=== PATIENT | female | born 1965 | race Caucasian/White ===

== ENCOUNTER 2017-03-13 03:40 | Inpatient (IN) | payer OTHER ==
[~2017-03-13] VITALS: Ht 165.1 cm; Wt 69.8 kg
--- NOTE | 2017-03-13 04:54 | RADRPT ---
PROCEDURE: Chest. CLINICAL INDICATION: Chest pain. TECHNIQUE: Single frontal view of the chest was obtained. COMPARISON: None. FINDINGS: There is a left-sided pacemaker. The cardiac silhouette is enlarged. The aortic arch is unremarkab le. There are increased interstitial markings bilaterally. There is no focal consolidation or pleu ral effusion. There is no pneumothorax. IMPRESSION: Bilateral increased interstitial markings could represent pulmonary venous congestion or chronic jeanna g changes. Cardiomegaly. .Jackson Davis MD, Date Time Electronically viewed and signed by .Jackson Davis MD, on 03/13/2017 04:54 .T/
--- NOTE | 2017-03-13 05:01 | ERA ---
ER Documentation Chief Complaint Date/Time DATE: 03/13/17 TIME: 05:00 Chief Complaint tia / chf HPI 51-year-old female comes on transfer from [facility] for CHF versus TIA. She had full workup there and showed a BNP of 60,000. Patient admits to using meth. Nonfocal neurologically. No other current complaints. ROS All systems reviewed and are negative except as per history of present illness. Allergies Allergies: Coded Allergies: doxycycline (Unverified Allergy, Unknown, 03/13/17) tetracycline (Unverified Allergy, Unknown, 03/13/17) PMhx/Soc History of Surgery: Yes (pacemaker) Anesthesia Reaction: No Hx Neurological Disorder: No Hx Respiratory Disorders: No Hx Cardiac Disorders: Yes (chf) Hx Psychiatric Problems: No Hx Miscellaneous Medical Probl: Yes (fibromyalgia, arthritis) Hx Alcohol Use: Yes Hx Substance Use: Yes (meth) Hx Tobacco Use: Yes Smoking Status: Current every day smoker Physical Exam Vitals Vital Signs Date Time Temp Pulse Resp B/P Pulse Ox O2 Delivery O2 Flow Rate FiO2 03/13/17 04:05 98.5 81 16 142/75 98 Physical Exam Const: [] Head: Atraumatic Eyes: Normal Conjunctiva ENT: Normal External Ears, Nose and Mouth. Neck: Full range of motion..~ No meningismus. Resp: Clear to auscultation bilaterally Cardio: Regular rate and rhythm, no murmurs Abd: Soft, non tender, non distended. Normal bowel sounds Skin: No petechiae or rashes Back: No midline or flank tenderness Ext: No cyanosis, or edema Neur: Awake and alert Psych: Normal Mood and Affect Procedures/MDM EKG: Rate/Rhythm: Normal Sinus Rhythm QRS, ST, T-waves: No changes consistent w/ acute ischemia Impression: No evidence of ischemia or arrhythmia Chest X-ray 1V Interpreted by me: Soft Tissue: No acute abnormalities Bones: No acute abnormalities Mediastinum/Cardiac Silhouette/Lungs: No acute abnormalities Patient's heart failure symptoms is concerning for acute decompensation and will require inpatient workup and monitoring. Further w/u for ischemia, arrhythmia, PE or dissection will be deferred to the inpatient team. Accepting Care Team: Current data and ongoing care discussed. Time: 5 AM Primary Provider: Hospitalist Consulting: [JerOXOXO] Outstanding Data: none Departure Diagnosis: Primary Impression: Congestive heart failure Qualified Code: I50.9 - Congestive heart failure, unspecified congestive heart failure chronicity, unspecified congestive heart failure type Additional Impression: TIA (transient ischemic attack) Qualified Code: G45.9 - Transient cerebral ischemia, unspecified type Condition: Serious LUCIANO HILARIO Mar 13, 2017 05:01
[2017-03-13 05:38] LABS: HEMATOCRIT 39.5 % (37.0-47.0); HEMOGLOBIN 13.2 g/dl (12.0-16.0); LYMPHOCYTES # 1.3 10^3/ul (0.8-2.9); LYMPHOCYTES % 24.2 % (15.0-51.0); MEAN CORPUSCULAR HEMOGLOBIN 28.4 pg (29.0-33.0); MEAN CORPUSCULAR HGB CONC 33.4 g/dl (32.0-37.0); MEAN CORPUSCULAR VOLUME 84.9 fl (82.0-101.0); MEAN PLATELET VOLUME 11.3 fl (7.4-10.4); MONOCYTE # 0.5 10^3/ul (0.3-0.9); MONOCYTES % 9.6 % (0.0-11.0); PLATELET COUNT 195 10^3/UL (140-415); RED BLOOD COUNT 4.65 10^6/ul (4.20-5.40); RED CELL DISTRIBUTION WIDTH 14.9 % (11.5-14.5); WHITE BLOOD COUNT 5.4 10^3/ul (4.8-10.8)
[2017-03-13 05:43] LABS: ADD UMIC NO; UR ASCORBIC ACID NEGATIVE (NEGATIVE); UR BILIRUBIN (Dip) NEGATIVE (NEGATIVE); UR BLOOD (Dip) NEGATIVE (NEGATIVE); UR CLARITY CLEAR (CLEAR); UR COLOR STRAW (YELLOW); UR GLUCOSE (Dip) NEGATIVE (NEGATIVE); UR KETONES (Dip) NEGATIVE (NEGATIVE); UR LEUKOCYTE ESTERASE (Dip) NEGATIVE Leu/ul (NEGATIVE); UR NITRITE (Dip) NEGATIVE (NEGATIVE); UR SPECIFIC GRAVITY (Dip) 1.015 (1.003-1.030); UR TOTAL PROTEIN (Dip) NEGATIVE (NEGATIVE); UR UROBILINOGEN (Dip) NEGATIVE (NEGATIVE)
[2017-03-13 06:01] LABS: CALCIUM 9.2 mg/dl (8.4-10.2); CREATININE 0.9 mg/dl (0.44-1.00); POTASSIUM 3.6 mmol/L (3.5-5.1)
[2017-03-13] MEDS ORDERED: SPIR25TA PO (06:08)
[2017-03-13] MEDS ORDERED: VALS80TA2 PO (06:08)
[2017-03-13] MEDS ORDERED: WARF5TAB72 PO (06:08)
[2017-03-13] MEDS ORDERED: ACET325T45 PO (06:10)
[2017-03-13 06:13] LABS: TROPONIN-I 0.075 ng/ml (0.00-0.12)
[2017-03-13 06:23] LABS: INR 1.08; PT RATIO 1.1
[2017-03-13 06:24] LABS: PARTIAL THROMBOPLASTIN TIME 28.7 Sec (25.0-35.0)
[2017-03-13] MEDS ORDERED: ACETAMINOPHEN 325 MG TAB PO PRN (08:30)
[2017-03-13] MEDS ORDERED: morphine 2 MG INJ IV PRN (08:30)
[2017-03-13] MEDS ORDERED: ONDANSETRON 4 MG INJ IV PRN (08:30)
--- NOTE | 2017-03-13 08:54 | RADRPT ---
PROCEDURE: US Carotids. CLINICAL INDICATION: bruit , L sided weakness TECHNIQUE: Multiple sonographic of the carotid bifurcation region and vertebral arteries were obta ined utilizing esquivel scale, duplex and color-flow imaging. The images were reviewed on a PACS worksta tion. COMPARISON: No prior studies are available for comparison. FINDINGS: Evaluation of the right carotid bifurcation region reveals no significant calcific atherosclerotic d isease. Evaluation of the left carotid bifurcation region reveals mild calcific atherosclerotic disease. There is antegrade flow within the vertebral arteries bilaterally. RIGHT CAROTID MEASUREMENTS: Common Carotid Xgmlpg57.9 (cm/sec) Internal Carotid Artery - mziebmme65.2 (cm/sec) Internal Carotid Artery - mid51 (cm/sec) Internal Carotid Artery - .9 (cm/sec) Internal Carotid/Common Carotid0.84 LEFT CAROTID MEASUREMENTS: Common Carotid Qgagdh42.1 (cm/sec) Internal Carotid Artery - qbiqtgdf58.5 (cm/sec) Internal Carotid Artery - mid52.6 (cm/sec) Internal Carotid Artery - ymgouv40.7 (cm/sec) Internal Carotid/Common Carotid1.19 RPTAT: AA IMPRESSION: No evidence for hemodynamically significant stenosis in the bilateral internal carotid arteries - va lidated velocity measurements with angiographic measurements, velocity criteria are extrapolated fro m diameter data as defined by the Society of Radiologists in Ultrasound Consensus Conference Radiolo gy 2003; 229;340-346. This study does indirectly reference the measurement of the distal ICA diamet er as the denominator for stenosis measurement. Normal antegrade flow in the vertebral arteries bilaterally. .Andrew Meek MD, Date Time Electronically viewed and signed by .Andrew Meek MD, MD on 03/13/2017 08:53 .S/
[2017-03-13] MEDS ORDERED: FUROSEMIDE 40 MG INJ IV SCH (09:00)
[2017-03-13] MEDS: FAMOTIDINE 20 MG TAB PO SCH ×2 (09:29→20:11)
[2017-03-13] MEDS: SPIRONOLACTONE 25 MG TAB PO SCH (09:30)
[2017-03-13] MEDS: DOCUSATE SODIUM 100 MG CAP PO SCH ×2 (09:30→20:11)
[2017-03-13] MEDS: VALSARTAN 80 MG TAB PO SCH (09:30)
--- NOTE | 2017-03-13 10:12 | CONS ---
Date/Time of Note Date/Time of Note DATE: 03/13/17 TIME: 10:08 Assessment/Plan Assessment/Plan Chief Complaint/Hosp Course 51 yo female with history of CHF, methamphetamine use, active smoker, prior alcohol abuse admitted with TIA symptoms resolved yesterday unclear duration. Recommend CVA work up: MRI Brain w/o contrast MRA Head (Duplex negative for stenosis) ECHO w bubble study maintain SBP <140/90 check FLP, HBA1C asprin 81 mg EC daily optimization of CHF medications drug abuse counseling smoking cessation lifestyle modification DVT ppx tele monitoring will follow Problems: Consultation Date/Type/Reason Admit Date/Time 03/12/17 Date of Consultation: Mar 12, 2017 Type of Consultation: Neurology Reason for Consultation CVA eval Referring Provider: ERIKA GARCES Hx of Present Illness 51 year old female with history of smoking, CHF non-compliant with medications , methamphetamine abuse, prior ETOH abuse admitted after episode of left sided weakness yesterday and AMS. Patient was at the [place] went back to her car and friends noticed her face was drooping on the left and she was acting strange, unclear how long episode lasted patient unable to provide further information. She is now back to baseline, denies NICOLE denies dysarthria or dysphagia, no focal weakness, she has no hx of prior CVA. Social History Smoking Status: Current every day smoker Exam/Review of Systems Vital Signs Vitals Vital Signs Date Time Temp Pulse Resp B/P Pulse Ox O2 Delivery O2 Flow Rate FiO2 03/13/17 05:18 98.5 85 16 156/102 98 Nasal Cannula 03/13/17 05:17 2 Exam Constitutional: alert, oriented Psych: no complaints Neurological: STAFF RADIATION THERAPIST II-XII intact, DTR's symmetric, nl mental status, nl speech, nl strength Results Result Diagram: 03/13/17 0450 03/13/17 0450 Results 24 hrs Laboratory Tests Test 03/13/17 04:45 03/13/17 04:50 03/13/17 05:10 03/13/17 05:55 Urine Color STRAW Urine Clarity CLEAR Urine pH 6.0 Urine Specific [place] 1.015 Urine Ketones NEGATIVE Urine Nitrite NEGATIVE Urine Bilirubin NEGATIVE Urine Urobilinogen NEGATIVE Urine Leukocyte Esterase NEGATIVE Urine Hemoglobin NEGATIVE Urine Glucose NEGATIVE Urine Total Protein NEGATIVE White Blood Count 5.4 Red Blood Count 4.65 Hemoglobin 13.2 Hematocrit 39.5 Mean Corpuscular Volume 84.9 Mean Corpuscular Hemoglobin 28.4 L Mean Corpuscular Hemoglobin Concent 33.4 Red Cell Distribution Width 14.9 H Platelet Count 195 Mean Platelet Volume 11.3 H Neutrophils % 66.0 Lymphocytes % 24.2 Monocytes % 9.6 Eosinophils % 0.0 Basophils % 0.0 Nucleated Red Blood Cells % 0.0 Neutrophils # (Manual) 4 Lymphocytes # 1.3 Monocytes # 0.5 Eosinophils # 0.0 Basophils # 0.0 Nucleated Red Blood Cells # 0.0 Sodium Level 140 Potassium Level 3.6 Chloride Level 102 Carbon Dioxide Level 24 Anion Gap 18 H Blood Urea Nitrogen 14 Creatinine 0.90 Glucose Level 89 Calcium Level 9.2 Troponin I 0.075 B-Type Natriuretic Peptide 88970 H Bedside Glucose 87 Prothrombin Time 14.0 Prothrombin Time Ratio 1.1 INR International Normalized Ratio 1.08 Activated Partial Thromboplast Time 28.7 Medications Medications Current Medications Acetaminophen (Tylenol Tab) 650 mg Q6H PRN PO PAIN AND OR ELEVATED TEMP; Start 03/13/17 at 08:30 Spironolactone (Aldactone) 25 mg DAILY PO Last administered on 03/13/17 09:30 ; Admin Dose 25 MG; Start 03/13/17 at 09:00 Valsartan (Diovan) 80 mg DAILY PO Last administered on 03/13/17 09:30; Admin Dose 80 MG; Start 03/13/17 at 09:00 Warfarin Sodium (Coumadin) 5 mg DAILY@17 PO ; Start 03/13/17 at 17:00 Furosemide (Lasix) 40 mg DAILY IV Last administered on 03/13/17 09:29; Admin Dose 40 MG; Start 03/13/17 at 09:00 Docusate Sodium (Colace) 100 mg BID PO Last administered on 03/13/17 09:30; Admin Dose 100 MG; Start 03/13/17 at 09:00 Famotidine (Pepcid) 20 mg BID PO Last administered on 03/13/17 09:29; Admin Dose 20 MG; Start 03/13/17 at 09:00 Ondansetron HCl (Zofran Inj) 4 mg Q6H PRN IV NAUSEA AND/OR VOMITING; Start at 08:30 Morphine Sulfate (morphine) 2 mg Q4H PRN IV pain; Start 03/13/17 at 08:30 IGOR THOMPSON MD Mar 13, 2017 10:12
[2017-03-13 11:47] LABS: CK-MB 1.83 ng/ml (0.0-2.4); TROPONIN-I 0.07 ng/ml (0.00-0.12)
--- NOTE | 2017-03-13 13:37 | CONS ---
Date/Time of Note Date/Time of Note DATE: 03/13/17 TIME: 13:27 Assessment/Plan Assessment/Plan Chief Complaint/Hosp Course Acute on chronic systolic heart failure: EF unknown. Decompensated by exam and symptoms. Ran out of meds 6 months ago. Social situation is not ideal. TIA: in setting of prior possible LV thrombus and not on anticoagulation, would be concerned about the same. Will check an echo h/o ICD: unknown details Cardiomyopathy: EF unknown Active meth abuse Prior alcohol abuse -hold coumadin until echo is obtained as was not taking it before anyway -no BB in setting of active meth abuse -continue valsartan, aldactone -lasix 40mg IV daily is ok as diuresing well per pt -echo Problems: Consultation Date/Type/Reason Admit Date/Time Initial Consult Date 03/12/17 Type of Consultation: Cardiology Reason for Consultation CHF Referring Provider: ERIKA GARCES 24 HR Interval Summary Free Text/Dictation 51 yo F with a h/o cardiomyopathy (presumably nonischemic, unknown EF), ?LV thrombus (was apparently on coumadin at some point), ICD (?primary vs secondary prevention, pt unaware), active meth abuse, prior alcohol abuse (quit 1 yr ago) , who presented initially to [facility] with left sided weakness/facial droop concerning for stroke and was transferred to [facility] for evaluation. The pt notes that her weakness was transient and that she is back at baseline. She is mostly concerned about SOB, dyspnea on exertion, orthopnea. She ran out of medications 6 months ago. She lives out of a friend's garage which she says is infested by rats. She uses meth daily, last yesterday. No chest pain. Exam/Review of Systems Vital Signs Vitals Vital Signs Date Time Temp Pulse Resp B/P Pulse Ox O2 Delivery O2 Flow Rate FiO2 03/13/17 12:29 98.2 80 18 116/90 98 Nasal Cannula 2.0 Exam Constitutional: alert, oriented Psych: No nl mood/affect Head: atraumatic, normocephalic Eyes: nl conjunctiva Neck: jvd (10cm) Respiratory: clear to auscultation, diminished breath sounds, No crackles/rales Cardiovascular: regular rate and rhythm, No edema, No systolic murmur Gastrointestinal: non-tender, soft Neurological: nl mental status, nl speech Skin: rash or lesions Results sinus, LAE, no ST changes Result Diagram: 03/13/17 0450 03/13/17 0450 Results 24 hrs Laboratory Tests Test 03/13/17 04:45 03/13/17 04:50 03/13/17 05:10 03/13/17 05:55 Urine Color STRAW Urine Clarity CLEAR Urine pH 6.0 Urine Specific [place] 1.015 Urine Ketones NEGATIVE Urine Nitrite NEGATIVE Urine Bilirubin NEGATIVE Urine Urobilinogen NEGATIVE Urine Leukocyte Esterase NEGATIVE Urine Hemoglobin NEGATIVE Urine Glucose NEGATIVE Urine Total Protein NEGATIVE White Blood Count 5.4 Red Blood Count 4.65 Hemoglobin 13.2 Hematocrit 39.5 Mean Corpuscular Volume 84.9 Mean Corpuscular Hemoglobin 28.4 L Mean Corpuscular Hemoglobin Concent 33.4 Red Cell Distribution Width 14.9 H Platelet Count 195 Mean Platelet Volume 11.3 H Neutrophils % 66.0 Lymphocytes % 24.2 Monocytes % 9.6 Eosinophils % 0.0 Basophils % 0.0 Nucleated Red Blood Cells % 0.0 Neutrophils # (Manual) 4 Lymphocytes # 1.3 Monocytes # 0.5 Eosinophils # 0.0 Basophils # 0.0 Nucleated Red Blood Cells # 0.0 Sodium Level 140 Potassium Level 3.6 Chloride Level 102 Carbon Dioxide Level 24 Anion Gap 18 H Blood Urea Nitrogen 14 Creatinine 0.90 Glucose Level 89 Calcium Level 9.2 Troponin I 0.075 B-Type Natriuretic Peptide 23650 H Bedside Glucose 87 Prothrombin Time 14.0 Prothrombin Time Ratio 1.1 INR International Normalized Ratio 1.08 Activated Partial Thromboplast Time 28.7 Test 03/13/17 10:34 Creatine Kinase 55 Creatine Kinase Index 3.3 Creatinine Kinase MB (Mass) 1.83 Troponin I 0.070 Medications Medications Current Medications Acetaminophen (Tylenol Tab) 650 mg Q6H PRN PO PAIN AND OR ELEVATED TEMP; Start 03/13/17 at 08:30 Spironolactone (Aldactone) 25 mg DAILY PO Last administered on 03/13/17 09:30 ; Admin Dose 25 MG; Start 03/13/17 at 09:00 Valsartan (Diovan) 80 mg DAILY PO Last administered on 03/13/17 09:30; Admin Dose 80 MG; Start 03/13/17 at 09:00 Warfarin Sodium (Coumadin) 5 mg DAILY@17 PO ; Start 03/13/17 at 17:00 Furosemide (Lasix) 40 mg DAILY IV Last administered on 03/13/17 09:29; Admin Dose 40 MG; Start 03/13/17 at 09:00 Docusate Sodium (Colace) 100 mg BID PO Last administered on 03/13/17 09:30; Admin Dose 100 MG; Start 03/13/17 at 09:00 Famotidine (Pepcid) 20 mg BID PO Last administered on 03/13/17 09:29; Admin Dose 20 MG; Start 03/13/17 at 09:00 Ondansetron HCl (Zofran Inj) 4 mg Q6H PRN IV NAUSEA AND/OR VOMITING; Start at 08:30 Morphine Sulfate (morphine) 2 mg Q4H PRN IV pain; Start 03/13/17 at 08:30 LUKASZ MCGILL Mar 13, 2017 13:36
[2017-03-13] MEDS ORDERED: IOHEXOL 100 ML ONE (14:18)
[2017-03-13] MEDS ORDERED: SOD CHLORIDE 0.9% 100 ML ONE (14:18)
--- NOTE | 2017-03-13 14:44 | RADRPT ---
PROCEDURE: CT Brain without contrast. CLINICAL INDICATION: Left-sided weakness. Right facial droop. TECHNIQUE: CT scan of the brain was performed on a multidetector high-resolution CT scan. Axial im aging was obtained of the brain without contrast administration. Coronal and sagittal reformatted i mages were obtained from the axial source images. Standard CT scan of the head without contrast prot ocols were performed. The total exam CTDI equals 45.01 mGy and the total exam DLP equals 720.3 mGy-cm. One or more of the following dose reduction techniques were used: - Automated exposure control. - Adjustment of the mA and/or kV according to patient size. Use of iterative reconstruction technique. COMPARISON: None. FINDINGS: There is a encephalomalacia involving the posterior right frontal lobe involves both white matter an d esquivel matter consistent with old infarct. The remainder of the esquivel-white matter junction is unrema rkable. Negative for intracranial masses or hemorrhages. The ventricular system and peripheral CSF spaces are otherwise unremarkable. There is artifact involving the posterior fossa and temporal fos sa. The bones of the calvarium are intact. The paranasal sinuses and mastoids visualized are unrem arkable. IMPRESSION: 1. 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 2. Negative for intracranial masses hemorrhages or midline shift. RPTAT:AAJJ Physician Yolanda Date Time Electronically viewed and signed by Physician Yolanda on 03/13/2017 14:44 BM/
--- NOTE | 2017-03-13 15:02 | RADRPT ---
Echocardiogram Report Patient Name: YANDY FISHMAN Gender: Female Date: 1965 Study Date: 13-Mar-2017 Cook Chef: Michelle Cook [facility] Location: [facility] [place] Ref. Physician: ERIKA GARCES Quality: Good Procedures: Transthoracic echocardiogram with complete 2D, M-Mode, and doppler examination. Indications: Congestive Heart Failure, elevated troponin. 2D/M Mode Doppler Measurement Value Normal Ranges Measurement Value Normal Ranges LVIDd 2D 6.2 3.5 - 5.6 cm AV Peak Claude 1.3 m/sec LVIDs 2D 5.6 2.1 - 4.1 cm AV Peak PG 6.3 mmHg LVPWd 2D 1.2 0.6 - 1.1 cm LVOT Peak Claude 1.1 m/sec IVSd 2D 1.2 0.6 - 1.1 cm LVOT Peak PG 5.1 mmHg AoR Diam 2D 2.5 2.0 - 3.7 cm MV E Peak Claude 1.0 m/sec LA Dimen 2D 4.6 2.3 - 4.0 cm MV A Peak Claude 0.6 m/sec MV Decel Time 146 msec MV Decel Weakley 7 Lateral E` 0.0 m/sec TR Peak Claude 3.4 m/sec TR Peak PG 47.3 mmHg RVSP 50.0 mmHg Findings Left Ventricle: Mild concentric left ventricular hypertrophy. Moderate enlargement of left ventricle cavity. Severe global left ventricular systolic dysfunction. Ejection fraction is visually estimated at 20 %. Tissue Doppler/Mitral Doppler indices are consistent with pseudonormalization with mildly elevated left atrial pressure (Stage II diastolic dysfunction). Right Ventricle: Normal right ventricular size. Normal right ventricular systolic function. Linear artifact in right ventricle suggestive of catheter, pacer lead, or ICD lead. Left Atrium: There is moderate enlargement of left atrium. Right Atrium: There is moderate enlargement of right atrium. Mitral Valve: Mitral valve leaflets appear mildly thickened. Mild mitral annular calcification. Mild to moderate mitral valve regurgitation. The regurgitation jet is eccentrically directed which may underestimate the severity of mitral regurgitation. Aortic Valve: Normal appearance of the aortic valve. No significant aortic stenosis or insufficiency. Tricuspid Valve: Normal appearance of the tricuspid valve. Estimated peak PA systolic pressure 55 mmHg. There is mild to moderate tricuspid regurgitation. Pulmonic Valve: Normal pulmonic valve appearance. There is mild pulmonic regurgitation. Pericardium: Normal pericardium with no significant pericardial effusion. Aorta: Normal aortic root. IVC: Normal size and no respiratory collapse consistent with elevated right atrial pressure. Conclusions 1.Mild concentric left ventricular hypertrophy. Moderate enlargement of left ventricle cavity. Severe global left ventricular systolic dysfunction. Ejection fraction is visually estimated at 20 %. Grade II diastolic dysfunction. 2.Mild to moderate mitral valve regurgitation. The regurgitation jet is eccentrically directed which may underestimate the severity of mitral regurgitation. 3.Biatrial enlargement. 4.Mild to moderate tricuspid reurgitation. 5.Pulmonary HTN with estimated peak PA systolic pressure 55 mmHg based on RA pressure of 8 mmHg. Electronically Signed By: Jason Valdovinos 13-Mar-2017 15:01:33 -0700 Patient Name: YANDY FISHMAN Study Date: 13-Mar-2017 [id number]
--- NOTE | 2017-03-13 15:08 | RADRPT ---
PROCEDURE: CTA Brain. CLINICAL INDICATION: Left-sided weakness. CVA workup. TECHNIQUE: The study was performed utilizing a multi-slice multidetector CT scanner. Direct spiral 0.65 mm axial sections were obtained through the intracranial vasculature with the use of 85 cc of Omnipaque 350 nonionic intravenous contrast material. Coronal and sagittal MPRs as well as maximal intensity projection reformations were obtained. 3-D MIP images were also reviewed. The images were reviewed on a PACS workstation. The CTDIvol is 66.31, and 28.38 mGy and the DLP is 568.95 mGycm. One or more of the following dose reduction techniques were used: Automated exposure control Adjustment of the mA and/or kV according to patient size. Use of iterative reconstruction technique. COMPARISON: No prior studies are available for comparison. FINDINGS: The internal carotid arteries are patent and normal in caliber. The anterior cerebral and middle cer ebral arteries are patent and normal in caliber. The vertebral arteries, basilar artery, superior c erebellar arteries, and posterior cerebral arteries are all normal in appearance. No aneurysm is id entified. No vascular malformation is seen. IMPRESSION: 1. No intracranial arterial occlusion or significant stenosis. 2. No cerebral aneurysms or vascular malformations. RPTAT: BB .Jim Blackman MD, MD Date Time Electronically viewed and signed by .Jim Blackman MD, MD on 03/13/2017 15:07 .O/
[2017-03-13 15:55] LABS: BARBITURATES Negative (NEGATIVE); BENZODIAZEPINES Negative (NEGATIVE); CANNABINOIDS Negative (NEGATIVE); COCAINE Negative (NEGATIVE); OPIATES Negative (NEGATIVE)
[2017-03-13] MEDS ORDERED: WARFARIN 5 MG TAB PO SCH (17:00)
--- NOTE | 2017-03-13 17:05 | HP ---
Date/Time of Note Date/Time of Note DATE: 03/13/17 TIME: 17:01 Assessment/Plan VTE Prophylaxis VTE Prophylaxis Intervention: other (coumadin) Lines/Catheters IV Catheter Type (from Nrs): Saline Lock Assessment/Plan Assessment/Plan 51 yo F with 1. L sided weakness, now resolved / possible TIA 2. SOB likely 2/2 Mild CHF exacerbation 3. Mild Acute on chronic CHF exacerbation 4. Mildly elevated troponins 2/2 #3 5. 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 Non compliance to therapy 7. Hx of Intraventricular clot on Coumadin 8. S/p Pacemaker PLAN: admit tele / stroke workup / neurology consult diuresis / trend trops / cardio consult Substance abuse cessation counselling / SW to provide resources Resume Coumadin and manage INR Supportive care HPI/ROS Admit Date/Time Admit Date/Time 03/13/17 Hx of Present Illness PRESENTING COMPLAINT: L sided weakness HISTORY OF PRESENTING COMPLAINT: Ms. Barfield is a 51-year-old female who was referred to us from [facility] where she had gone into be evaluated for left-sided weakness. She was worked up that as a code stroke and seen by tele-neurology who did not recommend TPA because the patient had complete resolution of her symptoms. They recommended however admission for further stroke workup. She had also complained of mild shortness of breath as well as dyspnea on exertion and she was found to have an elevated d-dimer as well as an elevated BNP. The patient does have a history of chronic cardiomyopathy likely from chronic methamphetamine use, and is being diagnosed with a mild CHF exacerbation likely systolic. She did have a mildly elevated troponin also at the referral Center, but this is also likely secondary to his CHF. A CT scan of the brain done over there did not show any acute abnormalities, she will need neurology review and further management. She denies fever, denies cough, denies abdominal pain, denies dysuria or hematuria. She has not had black stools. She was previously on Coumadin therapy because of an intraventricular clots, but she has been taking Coumadin in a while. Actually, the patient has has not taken most of her meds in a while. She will need to be set up with good outpatient follow-up and workforce consultant care. ROS 12 point review if systems was done and pertinent findings are as noted. Constitutional: fatigue Respiratory: shortness of breath Cardiovascular: lightheadedness Neurologic: other (L sided weakness and numbness) Psychological: anxiety PMH/Family/Social Past Medical History * CHF * CVA Past Surgical History * KATRIN with removal of one ovary Social History Smoking Status: Current every day smoker Drug Use: other (Meth) Exam/Review of Systems Vital Signs Vitals Vital Signs Date Time Temp Pulse Resp B/P Pulse Ox O2 Delivery O2 Flow Rate FiO2 03/13/17 15:46 98.0 87 17 122/80 99 Room Air 03/13/17 12:29 2.0 Exam Exam Constitutional: alert, oriented Head: atraumatic, normocephalic Neck: non-tender, supple Respiratory: clear to auscultation Cardiovascular: regular rate and rhythm Gastrointestinal: S/ NT / ND / +BS Extremities: mild edema Labs Result Diagram: 03/13/1744903/13/17449 Medications Medications Current Medications Acetaminophen (Tylenol Tab) 650 mg Q6H PRN PO PAIN AND OR ELEVATED TEMP; Start 03/13/17 at 08:30 Spironolactone (Aldactone) 25 mg DAILY PO Last administered on 03/13/17 09:30 ; Admin Dose 25 MG; Start 03/13/17 at 09:00 Valsartan (Diovan) 80 mg DAILY PO Last administered on 03/13/17 09:30; Admin Dose 80 MG; Start 03/13/17 at 09:00 Furosemide (Lasix) 40 mg DAILY IV Last administered on 03/13/17 09:29; Admin Dose 40 MG; Start 03/13/17 at 09:00 Docusate Sodium (Colace) 100 mg BID PO Last administered on 03/13/17 09:30; Admin Dose 100 MG; Start 03/13/17 at 09:00 Famotidine (Pepcid) 20 mg BID PO Last administered on 03/13/17 09:29; Admin Dose 20 MG; Start 03/13/17 at 09:00 Ondansetron HCl (Zofran Inj) 4 mg Q6H PRN IV NAUSEA AND/OR VOMITING; Start at 08:30 Morphine Sulfate (morphine) 2 mg Q4H PRN IV pain; Start 03/13/17 at 08:30 Procedures Procedures Laboratory Tests Test 03/13/17 04:45 03/13/17 04:50 03/13/17 05:10 03/13/17 05:55 Urine Color STRAW Urine Clarity CLEAR Urine pH 6.0 Urine Specific [place] 1.015 Urine Ketones NEGATIVEmg/dL Urine Nitrite NEGATIVEmg/dL Urine Bilirubin NEGATIVEmg/dL Urine Urobilinogen NEGATIVEmg/dL Urine Leukocyte Esterase NEGATIVELeu/ul Urine Hemoglobin NEGATIVEmg/dL Urine Glucose NEGATIVEmg/dL Urine Total Protein NEGATIVEmg/dl White Blood Count 5.410^3/ul Red Blood Count 4.6510^6/ul Hemoglobin 13.2g/dl Hematocrit 39.5% Mean Corpuscular Volume 84.9fl Mean Corpuscular Hemoglobin 28.4pg Mean Corpuscular Hemoglobin Concent 33.4g/dl Red Cell Distribution Width 14.9% Platelet Count 77072^3/UL Mean Platelet Volume 11.3fl Neutrophils % 66.0% Lymphocytes % 24.2% Monocytes % 9.6% Eosinophils % 0.0% Basophils % 0.0% Nucleated Red Blood Cells % 0.0/100WBC Neutrophils # (Manual) 410^3/ul Lymphocytes # 1.310^3/ul Monocytes # 0.510^3/ul Eosinophils # 0.010^3/ul Basophils # 0.010^3/ul Nucleated Red Blood Cells # 0.010^3/ul Sodium Level 140mmol/L Potassium Level 3.6mmol/L Chloride Level 102mmol/L Carbon Dioxide Level 24mmol/L Anion Gap 18 Blood Urea Nitrogen 14mg/dl Creatinine 0.90mg/dl Glucose Level 89mg/dl Calcium Level 9.2mg/dl Troponin I 0.075ng/ml B-Type Natriuretic Peptide 39112CX/ML Bedside Glucose 87mg/dL Prothrombin Time 14.0Sec Prothrombin Time Ratio 1.1 INR International Normalized Ratio 1.08 Activated Partial Thromboplast Time 28.7Sec Test 03/13/17 10:34 03/13/17 14:45 03/13/17 17:30 Creatine Kinase 55IU/L 62IU/L Creatine Kinase Index 3.3 2.7 Creatinine Kinase MB (Mass) 1.83ng/ml 1.67ng/ml Troponin I 0.070ng/ml 0.060ng/ml Urine Opiates Screen Negative Urine Barbiturates Negative Urine Amphetamines Screen Positive Urine Benzodiazepines Screen Negative Urine Cocaine Screen Negative Urine Cannabinoids Negative PROCEDURE: Chest. CLINICAL INDICATION: Chest pain. TECHNIQUE: Single frontal view of the chest was obtained. COMPARISON: None. FINDINGS: There is a left-sided pacemaker. The cardiac silhouette is enlarged. The aortic arch is unremarkable. There are increased interstitial markings bilaterally. There is no focal consolidation or pleural effusion. There is no pneumothorax. IMPRESSION: Bilateral increased interstitial markings could represent pulmonary venous congestion or chronic lung changes. Cardiomegaly. .Jackson Davis MD, MD Date Time Electronically viewed and signed by .Jackson Davis MD, MD on 03/13/2017 04:54 .T/ CC: LUCIANO HILARIO BOLATITO M. Mar 13, 2017 17:05
[2017-03-13 17:51] VITALS: TEMP 98.2
[2017-03-13 18:31] VITALS: Ht 165.1 cm; Wt 69.8 kg
[2017-03-13 18:32] LABS: CK-MB 1.67 ng/ml (0.0-2.4); TROPONIN-I 0.06 ng/ml (0.00-0.12)
[2017-03-13 18:35] VITALS: PULSE 87
[2017-03-13 18:45] VITALS: BP 127/80; PULSE 90; RESP 18
[2017-03-13 20:00] VITALS: BP 130/75; RESP 20
[2017-03-13 20:11] VITALS: PULSE 90
[2017-03-13] MEDS ORDERED: ALPRAZOLAM 0.25 MG TAB PO PRN (20:30)
[2017-03-14] VITALS (13 sets, daily range): BP systolic 105–139; BP diastolic 57–89; PULSE 83–90; RESP 15–20
--- NOTE | 2017-03-14 09:13 | CONS ---
Date/Time of Note Date/Time of Note DATE: 03/14/17 TIME: 09:09 Assessment/Plan Assessment/Plan Chief Complaint/Hosp Course Acute on chronic systolic heart failure: EF ~20%. Decompensated by exam and symptoms on admission, now ~euvolemic. TIA: in setting of prior possible LV thrombus and not on anticoagulation but no thrombus seen on echo this admission h/o ICD: unknown details Cardiomyopathy: EF 20%. Likely from meth abuse Active meth abuse Prior alcohol abuse -no need for anticoagulation as no obvious thrombus on echo -no BB in setting of active meth abuse -continue valsartan, aldactone -switch to lasix 40mg PO daily -ok for d/c from my perspective pending neuro eval (probably should be on ASA for her TIA) Problems: Consultation Date/Type/Reason Admit Date/Time Mar 13, 2017 at 18:33 Initial Consult Date 03/12/17 Type of Consultation: Cardiology Referring Provider: ERIKA GARCES 24 HR Interval Summary Free Text/Dictation No o/n events. Urinating frequently but no I/Os. No further orthopnea or SOB Exam/Review of Systems Vital Signs Vitals Vital Signs Date Time Temp Pulse Resp B/P Pulse Ox O2 Delivery O2 Flow Rate FiO2 03/14/17 08:59 83 03/14/17 07:35 97.8 18 139/79 98 03/13/17 18:45 Room Air 03/13/17 12:29 2.0 Intake and Output 03/13/17 03/13/17 03/14/17 15:00 23:00 07:00 Intake Total 400 ml Balance 400 ml Exam Constitutional: alert, oriented Psych: no complaints Head: atraumatic, normocephalic Neck: supple, No jvd Respiratory: clear to auscultation, No crackles/rales Cardiovascular: regular rate and rhythm, No edema Gastrointestinal: non-tender, soft Neurological: nl mental status, nl speech Results Result Diagram: 03/13/1744903/13/17449 Results 24 hrs Laboratory Tests Test 03/13/17 10:34 03/13/17 14:45 03/13/17 17:30 Creatine Kinase 55 62 Creatine Kinase Index 3.3 2.7 Creatinine Kinase MB (Mass) 1.83 1.67 Troponin I 0.070 0.060 Urine Opiates Screen Negative Urine Barbiturates Negative Urine Amphetamines Screen Positive Urine Benzodiazepines Screen Negative Urine Cocaine Screen Negative Urine Cannabinoids Negative Medications Medications Current Medications Acetaminophen (Tylenol Tab) 650 mg Q6H PRN PO PAIN AND OR ELEVATED TEMP; Start 03/13/17 at 08:30 Spironolactone (Aldactone) 25 mg DAILY PO Last administered on 03/13/17 09:30 ; Admin Dose 25 MG; Start 03/13/17 at 09:00 Valsartan (Diovan) 80 mg DAILY PO Last administered on 03/13/17 09:30; Admin Dose 80 MG; Start 03/13/17 at 09:00 Furosemide (Lasix) 40 mg DAILY IV Last administered on 03/13/17 09:29; Admin Dose 40 MG; Start 03/13/17 at 09:00 Docusate Sodium (Colace) 100 mg BID PO Last administered on 03/13/17 20:11; Admin Dose 100 MG; Start 03/13/17 at 09:00 Famotidine (Pepcid) 20 mg BID PO Last administered on 03/13/17 20:11; Admin Dose 20 MG; Start 03/13/17 at 09:00 Ondansetron HCl (Zofran Inj) 4 mg Q6H PRN IV NAUSEA AND/OR VOMITING; Start at 08:30 Morphine Sulfate (morphine) 2 mg Q4H PRN IV pain; Start 03/13/17 at 08:30 Alprazolam (Xanax) 0.25 mg Q8H PRN PO ANXIETY; Start 03/13/17 at 20:30 LUKASZ MCGILL Mar 14, 2017 09:13
[2017-03-14] MEDS: SPIRONOLACTONE 25 MG TAB PO SCH (09:24)
[2017-03-14] MEDS: FAMOTIDINE 20 MG TAB PO SCH ×2 (09:25→20:49)
[2017-03-14] MEDS: DOCUSATE SODIUM 100 MG CAP PO SCH ×2 (09:25→20:49)
[2017-03-14] MEDS: VALSARTAN 80 MG TAB PO SCH (09:25)
[2017-03-14 10:01] LABS: HEMATOCRIT 43.2 % (37.0-47.0); LYMPHOCYTES # 0.9 10^3/ul (0.8-2.9); LYMPHOCYTES % 12.8 % (15.0-51.0); MEAN CORPUSCULAR HEMOGLOBIN 27.4 pg (29.0-33.0); MEAN CORPUSCULAR HGB CONC 32.4 g/dl (32.0-37.0); MEAN CORPUSCULAR VOLUME 84.5 fl (82.0-101.0); MEAN PLATELET VOLUME 10.7 fl (7.4-10.4); MONOCYTE # 0.6 10^3/ul (0.3-0.9); MONOCYTES % 8.8 % (0.0-11.0); NEUTROPHILS % 78.1 % (39.0-77.0); PLATELET COUNT 236 10^3/UL (140-415); RED BLOOD COUNT 5.11 10^6/ul (4.20-5.40); RED CELL DISTRIBUTION WIDTH 15.2 % (11.5-14.5); WHITE BLOOD COUNT 7.3 10^3/ul (4.8-10.8)
[2017-03-14] MEDS: FUROSEMIDE 40 MG TAB PO SCH ×2 (10:10→20:48)
[2017-03-14 10:19] LABS: INR 1.05; PROTIME 13.7 Sec (12.2-14.2); PT RATIO 1.1
[2017-03-14 10:20] LABS: PARTIAL THROMBOPLASTIN TIME 26.2 Sec (25.0-35.0)
[2017-03-14 10:24] LABS: CHOL/HDL RATIO 3.9 RATIO; CREATININE 1.06 mg/dl (0.44-1.00); POTASSIUM 3.8 mmol/L (3.5-5.1)
[2017-03-14 10:40] LABS: MAGNESIUM 1.8 mg/dl (1.7-2.5); PHOSPHORUS 4.4 mg/dl (2.5-4.9)
[2017-03-14 11:36] LABS: THYROID STIMULATING HORMONE 0.288 MIU/L (0.465-4.680)
--- NOTE | 2017-03-14 14:59 | CONS ---
Date/Time of Note Date/Time of Note DATE: 03/14/17 TIME: 14:50 Consult Date/Type/Reason Admit Date/Time Mar 13, 2017 at 18:33 Initial Consult Date 03/12/17 Type of Consultation: Neurology Reason for Consultation eval for TIA Ordering Provider: ERIKA GARCES Subjective symptoms stable no further neurologic issues no further weakness or aphasia Objective Vital Signs Date Time Temp Pulse Resp B/P Pulse Ox O2 Delivery O2 Flow Rate FiO2 03/14/17 12:08 97.8 84 18 125/77 95 03/13/17 18:45 Room Air 03/13/17 12:29 2.0 Intake and Output 03/13/17 03/13/17 03/14/17 15:00 23:00 07:00 Intake Total 400 ml Balance 400 ml Exam Constitutional: alert, oriented Psych: no complaints Neurological: SPORTS DIRECTOR II-XII intact, DTR's symmetric, nl mental status, nl speech, nl strength Results/Medications Result Diagram: 03/14/17 0940 03/14/17 0940 Results 24 hrs Laboratory Tests Test 03/13/17 17:30 03/14/17 09:40 Creatine Kinase 62 Creatine Kinase Index 2.7 Creatinine Kinase MB (Mass) 1.67 Troponin I 0.060 White Blood Count 7.3 # Red Blood Count 5.11 Hemoglobin 14.0 Hematocrit 43.2 Mean Corpuscular Volume 84.5 Mean Corpuscular Hemoglobin 27.4 L Mean Corpuscular Hemoglobin Concent 32.4 Red Cell Distribution Width 15.2 H Platelet Count 236 # Mean Platelet Volume 10.7 H Neutrophils % 78.1 H Lymphocytes % 12.8 L Monocytes % 8.8 Eosinophils % 0.0 Basophils % 0.0 Nucleated Red Blood Cells % 0.0 Neutrophils # (Manual) 6 Lymphocytes # 0.9 Monocytes # 0.6 Eosinophils # 0.0 Basophils # 0.0 Nucleated Red Blood Cells # 0.0 Prothrombin Time 13.7 Prothrombin Time Ratio 1.1 INR International Normalized Ratio 1.05 Activated Partial Thromboplast Time 26.2 Sodium Level 136 Potassium Level 3.8 Chloride Level 99 Carbon Dioxide Level 23 Anion Gap 18 H Blood Urea Nitrogen 20 Creatinine 1.06 H Glucose Level 179 Hemoglobin A1c 6.8 H Calcium Level 9.0 Phosphorus Level 4.4 Magnesium Level 1.8 Triglycerides Level 136 Cholesterol Level 145 LDL Cholesterol, Calculated 81 HDL Cholesterol 37 Cholesterol/HDL Ratio 3.9 Thyroid Stimulating Hormone (TSH) 0.288 L Medications Current Medications Acetaminophen (Tylenol Tab) 650 mg Q6H PRN PO PAIN AND OR ELEVATED TEMP; Start 03/13/17 at 08:30 Spironolactone (Aldactone) 25 mg DAILY PO Last administered on 03/14/17 09:24 ; Admin Dose 25 MG; Start 03/13/17 at 09:00 Valsartan (Diovan) 80 mg DAILY PO Last administered on 03/14/17 09:25; Admin Dose 80 MG; Start 03/13/17 at 09:00 Docusate Sodium (Colace) 100 mg BID PO Last administered on 03/14/17 09:25; Admin Dose 100 MG; Start 03/13/17 at 09:00 Famotidine (Pepcid) 20 mg BID PO Last administered on 03/14/17 09:25; Admin Dose 20 MG; Start 03/13/17 at 09:00 Ondansetron HCl (Zofran Inj) 4 mg Q6H PRN IV NAUSEA AND/OR VOMITING; Start at 08:30 Morphine Sulfate (morphine) 2 mg Q4H PRN IV pain; Start 03/13/17 at 08:30 Alprazolam (Xanax) 0.25 mg Q8H PRN PO ANXIETY; Start 03/13/17 at 20:30 Furosemide (Lasix) 40 mg DAILY PO Last administered on 03/14/17 10:10; Admin Dose 40 MG; Start 03/14/17 at 09:30 Assessment/Plan Chief Complaint/Hosp Course 51 yo female with history of CHF, methamphetamine use, active smoker, prior alcohol abuse admitted with TIA symptoms resolved yesterday unclear duration. EF 20% prior CVA Right frontal region on Head CT possibly secondary to cardiomyopathy from amphetamine abuse/ previous thrombus however no active thrombus at this time. Head CT shows prior CVA no new stroke, currently asymptomatic possible TIA given brief symptoms with resolution, she should be on ASA 81 mg maintain normotension HBA1C 6.8% diabetes evaluation, start metformin if appropriate drug abuse counseling smoking cessation lifestyle modification dc planning if stable Problems: IGOR THOMPSON MD Mar 14, 2017 14:59
--- NOTE | 2017-03-14 16:54 | PN ---
Date/Time of Note Date/Time of Note DATE: 03/14/17 TIME: 16:50 Assessment/Plan VTE Prophylaxis VTE Prophylaxis Intervention: SCD's, other (ASA 325 mg po daily ) Lines/Catheters IV Catheter Type (from Nrsg): Saline Lock Assessment/Plan Assessment/Plan 1. L sided weakness, now resolved / possible TIA 2. SOB likely 2/2 Mild CHF exacerbation 3. Mild Acute on chronic CHF exacerbation 4. Mildly elevated troponins 2/2 #3 5. 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 Non compliance to therapy 7. Hx of Intraventricular clot on Coumadin 8. S/p Pacemaker PLAN: s/p cardiology consult - no need for coumadin- ASA 325 mg po daily s/p IV lasix yeserday, will start lasix 40mg po daily Valsartan and spironolactone will downgrade to med/surge floor Subjective 24 Hr Interval Summary Free Text/Dictation no chest pain, no SOB, S/p cadiology cosnult, pt ran out of all of her meds( dont know details ) Exam/Review of Systems Vital Signs Vitals Vital Signs Date Time Temp Pulse Resp B/P Pulse Ox O2 Delivery O2 Flow Rate FiO2 03/14/17 16:08 97.8 90 18 118/74 98 03/13/17 18:45 Room Air 03/13/17 12:29 2.0 Intake and Output 03/13/17 03/13/17 03/14/17 15:00 23:00 07:00 Intake Total 400 ml Balance 400 ml Exam Constitutional: alert, oriented Head: atraumatic, normocephalic Neck: non-tender, supple Respiratory: clear to auscultation Cardiovascular: regular rate and rhythm Gastrointestinal: S/ NT / ND / +BS Extremities: mild edema Results Result Diagram: 03/14/17 0940 03/14/17 0940 Results 24 hrs Laboratory Tests Test 03/13/17 17:30 03/14/17 09:40 Creatine Kinase 62 Creatine Kinase Index 2.7 Creatinine Kinase MB (Mass) 1.67 Troponin I 0.060 White Blood Count 7.3 # Red Blood Count 5.11 Hemoglobin 14.0 Hematocrit 43.2 Mean Corpuscular Volume 84.5 Mean Corpuscular Hemoglobin 27.4 L Mean Corpuscular Hemoglobin Concent 32.4 Red Cell Distribution Width 15.2 H Platelet Count 236 # Mean Platelet Volume 10.7 H Neutrophils % 78.1 H Lymphocytes % 12.8 L Monocytes % 8.8 Eosinophils % 0.0 Basophils % 0.0 Nucleated Red Blood Cells % 0.0 Neutrophils # (Manual) 6 Lymphocytes # 0.9 Monocytes # 0.6 Eosinophils # 0.0 Basophils # 0.0 Nucleated Red Blood Cells # 0.0 Prothrombin Time 13.7 Prothrombin Time Ratio 1.1 INR International Normalized Ratio 1.05 Activated Partial Thromboplast Time 26.2 Sodium Level 136 Potassium Level 3.8 Chloride Level 99 Carbon Dioxide Level 23 Anion Gap 18 H Blood Urea Nitrogen 20 Creatinine 1.06 H Glucose Level 179 Hemoglobin A1c 6.8 H Calcium Level 9.0 Phosphorus Level 4.4 Magnesium Level 1.8 Triglycerides Level 136 Cholesterol Level 145 LDL Cholesterol, Calculated 81 HDL Cholesterol 37 Cholesterol/HDL Ratio 3.9 Thyroid Stimulating Hormone (TSH) 0.288 L Medications Medications Current Medications Acetaminophen (Tylenol Tab) 650 mg Q6H PRN PO PAIN AND OR ELEVATED TEMP; Start 03/13/17 at 08:30 Spironolactone (Aldactone) 25 mg DAILY PO Last administered on 03/14/17 09:24 ; Admin Dose 25 MG; Start 03/13/17 at 09:00 Valsartan (Diovan) 80 mg DAILY PO Last administered on 03/14/17 09:25; Admin Dose 80 MG; Start 03/13/17 at 09:00 Docusate Sodium (Colace) 100 mg BID PO Last administered on 03/14/17 09:25; Admin Dose 100 MG; Start 03/13/17 at 09:00 Famotidine (Pepcid) 20 mg BID PO Last administered on 03/14/17 09:25; Admin Dose 20 MG; Start 03/13/17 at 09:00 Ondansetron HCl (Zofran Inj) 4 mg Q6H PRN IV NAUSEA AND/OR VOMITING; Start at 08:30 Morphine Sulfate (morphine) 2 mg Q4H PRN IV pain; Start 03/13/17 at 08:30 Alprazolam (Xanax) 0.25 mg Q8H PRN PO ANXIETY; Start 03/13/17 at 20:30 Furosemide (Lasix) 40 mg DAILY PO Last administered on 03/14/17 10:10; Admin Dose 40 MG; Start 03/14/17 at 09:30 Aspirin (Ecotrin) 325 mg DAILY PO ; Start 03/14/17 at 16:30 SAVANA AVILA MD Mar 14, 2017 16:54
[2017-03-14] MEDS: ASPIRIN (EC) 325 MG TAB PO SCH (18:08)
[2017-03-15 07:35] VITALS: BP 114/68; RESP 16
[2017-03-15 08:12] LABS: BASOPHILS % 0.2 % (0.0-2.0); HEMATOCRIT 44.8 % (37.0-47.0); HEMOGLOBIN 14.8 g/dl (12.0-16.0); LYMPHOCYTES # 1.5 10^3/ul (0.8-2.9); LYMPHOCYTES % 23.5 % (15.0-51.0); MEAN CORPUSCULAR HEMOGLOBIN 28.1 pg (29.0-33.0); MEAN PLATELET VOLUME 10.6 fl (7.4-10.4); MONOCYTE # 0.8 10^3/ul (0.3-0.9); MONOCYTES % 12.9 % (0.0-11.0); NEUTROPHILS % 63.2 % (39.0-77.0); PLATELET COUNT 249 10^3/UL (140-415); RED BLOOD COUNT 5.27 10^6/ul (4.20-5.40); RED CELL DISTRIBUTION WIDTH 14.8 % (11.5-14.5); WHITE BLOOD COUNT 6.2 10^3/ul (4.8-10.8)
[2017-03-15 08:36] LABS: INR 0.97; PROTIME 12.9 Sec (12.2-14.2)
[2017-03-15] MEDS: VALSARTAN 80 MG TAB PO SCH (09:12)
[2017-03-15] MEDS: FAMOTIDINE 20 MG TAB PO SCH (09:12)
[2017-03-15] MEDS: SPIRONOLACTONE 25 MG TAB PO SCH (09:12)
[2017-03-15] MEDS: DOCUSATE SODIUM 100 MG CAP PO SCH (09:12)
[2017-03-15] MEDS: ASPIRIN (EC) 325 MG TAB PO SCH (09:12)
[2017-03-15 09:13] LABS: CALCIUM 9.4 mg/dl (8.4-10.2); CREATININE 0.91 mg/dl (0.44-1.00)
[2017-03-15] MEDS: FUROSEMIDE 40 MG TAB PO SCH (09:13)
--- NOTE | 2017-03-15 11:28 | CONS ---
Date/Time of Note Date/Time of Note DATE: 03/15/17 TIME: 11:27 Assessment/Plan Assessment/Plan Chief Complaint/Hosp Course Acute on chronic systolic heart failure: EF ~20%. Decompensated by exam and symptoms on admission, now ~euvolemic. TIA: in setting of prior possible LV thrombus and not on anticoagulation but no thrombus seen on echo this admission h/o ICD: unknown details Cardiomyopathy: EF 20%. Likely from meth abuse Active meth abuse Prior alcohol abuse -no need for anticoagulation as no obvious thrombus on echo -no BB in setting of active meth abuse -continue valsartan, aldactone -lasix 40mg PO daily -ASA -ok for d/c from my perspective Problems: Consultation Date/Type/Reason Admit Date/Time Mar 13, 2017 at 18:33 Initial Consult Date 03/12/17 Type of Consultation: Cardiology Referring Provider: ERIKA GARCES 24 HR Interval Summary Free Text/Dictation No o/n events. No complaints Exam/Review of Systems Vital Signs Vitals Vital Signs Date Time Temp Pulse Resp B/P Pulse Ox O2 Delivery O2 Flow Rate FiO2 03/15/17 07:35 98.4 69 16 114/68 98 03/13/17 18:45 Room Air 03/13/17 12:29 2.0 Intake and Output 03/14/17 03/14/17 03/15/17 15:00 23:00 07:00 Intake Total 1440 ml 240 ml Balance 1440 ml 240 ml Exam Constitutional: alert, oriented Psych: nl mood/affect, no complaints Head: atraumatic, normocephalic Neck: No jvd Respiratory: clear to auscultation, No crackles/rales Cardiovascular: regular rate and rhythm, No edema Gastrointestinal: non-tender, soft Neurological: nl mental status, nl speech Results Result Diagram: 03/15/17 0755 03/15/17 0755 Results 24 hrs Laboratory Tests Test 03/15/17 07:55 White Blood Count 6.2 Red Blood Count 5.27 Hemoglobin 14.8 Hematocrit 44.8 Mean Corpuscular Volume 85.0 Mean Corpuscular Hemoglobin 28.1 L Mean Corpuscular Hemoglobin Concent 33.0 Red Cell Distribution Width 14.8 H Platelet Count 249 Mean Platelet Volume 10.6 H Neutrophils % 63.2 Lymphocytes % 23.5 Monocytes % 12.9 H Eosinophils % 0.0 Basophils % 0.2 Nucleated Red Blood Cells % 0.0 Neutrophils # (Manual) 4 Lymphocytes # 1.5 Monocytes # 0.8 Eosinophils # 0.0 Basophils # 0.0 Nucleated Red Blood Cells # 0.0 Prothrombin Time 12.9 Prothrombin Time Ratio 1.0 INR International Normalized Ratio 0.97 Activated Partial Thromboplast Time 26.0 Sodium Level 136 Potassium Level 4.0 Chloride Level 100 Carbon Dioxide Level 26 Anion Gap 14 Blood Urea Nitrogen 23 H Creatinine 0.91 Glucose Level 112 # Calcium Level 9.4 Medications Medications Current Medications Acetaminophen (Tylenol Tab) 650 mg Q6H PRN PO PAIN AND OR ELEVATED TEMP; Start 03/13/17 at 08:30 Spironolactone (Aldactone) 25 mg DAILY PO Last administered on 03/15/17 09:12 ; Admin Dose 25 MG; Start 03/13/17 at 09:00 Valsartan (Diovan) 80 mg DAILY PO Last administered on 03/15/17 09:12; Admin Dose 80 MG; Start 03/13/17 at 09:00 Docusate Sodium (Colace) 100 mg BID PO Last administered on 03/15/17 09:12; Admin Dose 100 MG; Start 03/13/17 at 09:00 Famotidine (Pepcid) 20 mg BID PO Last administered on 03/15/17 09:12; Admin Dose 20 MG; Start 03/13/17 at 09:00 Ondansetron HCl (Zofran Inj) 4 mg Q6H PRN IV NAUSEA AND/OR VOMITING; Start at 08:30 Morphine Sulfate (morphine) 2 mg Q4H PRN IV pain; Start 03/13/17 at 08:30 Alprazolam (Xanax) 0.25 mg Q8H PRN PO ANXIETY Last administered on 03/14/17 20 :49; Admin Dose 0.25 MG; Start 03/13/17 at 20:30 Furosemide (Lasix) 40 mg DAILY PO Last administered on 03/15/17 09:13; Admin Dose 40 MG; Start 03/14/17 at 09:30 Aspirin (Ecotrin) 325 mg DAILY PO Last administered on 03/15/17 09:12; Admin Dose 325 MG; Start 03/14/17 at 16:30 LUKASZ MCGILL Mar 15, 2017 11:28
--- NOTE | 2017-03-15 12:35 | PN ---
Date/Time of Note Date/Time of Note DATE: 03/15/17 TIME: 12:34 Assessment/Plan VTE Prophylaxis VTE Prophylaxis Intervention: SCD's Lines/Catheters IV Catheter Type (from Nrsg): Saline Lock Assessment/Plan Assessment/Plan 1. L sided weakness, now resolved / possible TIA 2. SOB likely 2/2 Mild CHF exacerbation 3. Mild Acute on chronic CHF exacerbation 4. Mildly elevated troponins 2/2 #3 5. 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 Non compliance to therapy 7. Hx of Intraventricular clot on Coumadin 8. S/p Pacemaker PLAN: s/p cardiology consult - no need for coumadin- ASA 325 mg po daily s/p IV lasix yeserday, will start lasix 40mg po daily Valsartan and spironolactone continue current prescription Exam/Review of Systems Vital Signs Vitals Vital Signs Date Time Temp Pulse Resp B/P Pulse Ox O2 Delivery O2 Flow Rate FiO2 03/15/17 07:35 98.4 69 16 114/68 98 03/13/17 18:45 Room Air 03/13/17 12:29 2.0 Intake and Output 03/14/17 03/14/17 03/15/17 15:00 23:00 07:00 Intake Total 1440 ml 240 ml Balance 1440 ml 240 ml Results Result Diagram: 03/15/17 0755 03/15/17 0755 Results 24 hrs Laboratory Tests Test 03/15/17 07:55 White Blood Count 6.2 Red Blood Count 5.27 Hemoglobin 14.8 Hematocrit 44.8 Mean Corpuscular Volume 85.0 Mean Corpuscular Hemoglobin 28.1 L Mean Corpuscular Hemoglobin Concent 33.0 Red Cell Distribution Width 14.8 H Platelet Count 249 Mean Platelet Volume 10.6 H Neutrophils % 63.2 Lymphocytes % 23.5 Monocytes % 12.9 H Eosinophils % 0.0 Basophils % 0.2 Nucleated Red Blood Cells % 0.0 Neutrophils # (Manual) 4 Lymphocytes # 1.5 Monocytes # 0.8 Eosinophils # 0.0 Basophils # 0.0 Nucleated Red Blood Cells # 0.0 Prothrombin Time 12.9 Prothrombin Time Ratio 1.0 INR International Normalized Ratio 0.97 Activated Partial Thromboplast Time 26.0 Sodium Level 136 Potassium Level 4.0 Chloride Level 100 Carbon Dioxide Level 26 Anion Gap 14 Blood Urea Nitrogen 23 H Creatinine 0.91 Glucose Level 112 # Calcium Level 9.4 Medications Medications Current Medications Acetaminophen (Tylenol Tab) 650 mg Q6H PRN PO PAIN AND OR ELEVATED TEMP; Start 03/13/17 at 08:30 Spironolactone (Aldactone) 25 mg DAILY PO Last administered on 03/15/17 09:12 ; Admin Dose 25 MG; Start 03/13/17 at 09:00 Valsartan (Diovan) 80 mg DAILY PO Last administered on 03/15/17 09:12; Admin Dose 80 MG; Start 03/13/17 at 09:00 Docusate Sodium (Colace) 100 mg BID PO Last administered on 03/15/17 09:12; Admin Dose 100 MG; Start 03/13/17 at 09:00 Famotidine (Pepcid) 20 mg BID PO Last administered on 03/15/17 09:12; Admin Dose 20 MG; Start 03/13/17 at 09:00 Ondansetron HCl (Zofran Inj) 4 mg Q6H PRN IV NAUSEA AND/OR VOMITING; Start at 08:30 Morphine Sulfate (morphine) 2 mg Q4H PRN IV pain; Start 03/13/17 at 08:30 Alprazolam (Xanax) 0.25 mg Q8H PRN PO ANXIETY Last administered on 03/14/17 20 :49; Admin Dose 0.25 MG; Start 03/13/17 at 20:30 Furosemide (Lasix) 40 mg DAILY PO Last administered on 03/15/17 09:13; Admin Dose 40 MG; Start 03/14/17 at 09:30 Aspirin (Ecotrin) 325 mg DAILY PO Last administered on 03/15/17 09:12; Admin Dose 325 MG; Start 03/14/17 at 16:30 SAVANA AVILA MD Mar 15, 2017 12:35
--- NOTE | 2017-03-15 12:41 | PDOCDIS ---
Discharge Instructions CONDITION Patient Condition: Good HOME CARE INSTRUCTIONS: Special Diet: Cardiac diet ACTIVITY: Activity Restrictions: Slowly Increase Activity Rest between Activity Avoid heavy lifting Avoid Heavy Housework FOLLOW UP/APPOINTMENTS Follow-up Plan follow up with her own PMD through HMO insurance in 1-2 week after discharge SAVANA AVILA MD Mar 15, 2017 12:40
[2017-03-15] MEDS ORDERED: ASPI325T32 PO (12:42)
[2017-03-15] MEDS ORDERED: FAMO20TA18 PO (12:42)
[2017-03-15] MEDS ORDERED: FURO40TA4 PO (12:42)
[2017-03-15] MEDS ORDERED: VALS80TA2 PO (12:42)
[2017-03-15] MEDS ORDERED: SPIR25TA PO (12:42)
[2017-03-15 14:08] VITALS: BP 108/59; RESP 16
== END 2017-03-15 14:33 | disposition home or self-care (01) | DRG 292 ==
LOC: E/R 03:40 → MS4 18:33 → PP2 03-15 01:58
PROVIDERS: ADMIT Family Medicine; ATTEND Family Medicine
DX: I50.23 Acute on chronic systolic (congestive) heart failure (principal); G45.9 Transient cerebral ischemic attack, unspecified; I25.5 Ischemic cardiomyopathy; F15.10 Other stimulant abuse, uncomplicated; F17.210 Nicotine dependence, cigarettes, uncomplicated; F41.9 Anxiety disorder, unspecified; M79.7 Fibromyalgia; Z79.01 Long term (current) use of anticoagulants; Z79.82 Long term (current) use of aspirin; Z91.14 Patient's other noncompliance with medication regimen; Z95.0 Presence of cardiac pacemaker; Z90.710 Acquired absence of both cervix and uterus
CPT/HCPCS: 36415; 70450; 70496; 71010; 80048; 80061; 80307; 81003; 82550; 82553; 82962; 83036; 83735; 83880; 84100; 84443; 84484; 85025; 85610; 85730; 87081; 93005; 93306; 93880; 96374; J1940; Q9967

== ENCOUNTER 2017-05-01 09:19 | Inpatient (IN) | payer OTHER ==
[~2017-05-01] VITALS: Ht 165.1 cm; Wt 74.2 kg
[2017-05-01] VITALS (7 sets, daily range): BP systolic 135–151; BP diastolic 79–84; PULSE 73–97; RESP 18; Ht 165.1 cm; Wt 74.2 kg
[~2017-05-01 09:19] MED LIST: ACET325T45 PO; ASPI325T32 PO; FAMO20TA18 PO; FURO40TA4 PO; SPIR25TA PO; VALS80TA2 PO
--- NOTE | 2017-05-01 16:58 | HP ---
Date/Time of Note Date/Time of Note DATE: 05/01/17 TIME: 16:52 Assessment/Plan VTE Prophylaxis VTE Prophylaxis Intervention: SCD's Lines/Catheters IV Catheter Type (from [facility]): [place] [facility] Urinary Cath still in place: No Assessment/Plan Chief Complaint/Hosp Course 1. 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 History of TIA No acute issues 3. History of ventricular clot Continue Coumadin 4. Meth abuse U tox was positive 5. UTI UA at outside hospital does suggest UTI Rocephin IV Prophylaxis: SCDs Problems: HPI/ROS Admit Date/Time Admit Date/Time May 01, 2017 at 11:20 Hx of Present Illness Patient is a 51-year-old female with history of TIA, CHF with an EF of 20%, meth abuse, ventricular clot on Coumadin. Patient presents with shortness of breath, patient was transferred to [facility] for insurance reasons. At outside hospital BNP was noted to be elevated, patient denies any chest pain at this time. ROS Constitutional: improved, no complaints Eyes: no complaints ENT: no complaints Respiratory: shortness of breath Cardiovascular: no complaints Gastrointestinal: no complaints Genitourinary: no complaints Musculoskeletal: no complaints Skin: no complaints Neurologic: no complaints Endocrine: no complaints Lymphatic: no complaints Psychological: nl mood/affect, no complaints Immunologic: no complaints PMH/Family/Social Past Medical History CHF with an EF of 20%, meth abuse, ventricular clot on Coumadin, pacemaker placement, TIA Past Surgical History KATRIN with removal of one ovary Family History Significant Family History: no pertinent family hx Social History Alcohol Use: rarely Smoking Status: Current every day smoker Drug Use: other (Meth) Exam/Review of Systems Vital Signs Vitals Vital Signs Date Time Temp Pulse Resp B/P Pulse Ox O2 Delivery O2 Flow Rate FiO2 05/01/17 16:41 98.0 97 18 135/79 97 05/01/17 12:46 Nasal Cannula 3.0 Exam Constitutional: alert Respiratory: clear to auscultation Cardiovascular: regular rate and rhythm Gastrointestinal: soft, No distended Musculoskeletal: nl extremities to inspection CLEMENTE QUINONEZ May 01, 2017 16:58
[2017-05-01] MEDS ORDERED: ACETAMINOPHEN 325 MG TAB PO PRN (17:00)
[2017-05-01] MEDS ORDERED: morphine 2 MG INJ IV PRN (17:00)
[2017-05-01] MEDS ORDERED: ZOLPIDEM 5 MG TAB PO PRN (17:00)
[2017-05-01] MEDS ORDERED: DOCUSATE SODIUM 100 MG CAP PO PRN (17:00)
[2017-05-01] MEDS ORDERED: NACL 0.9% 3 ML SYG IV SCH (17:00)
[2017-05-01] MEDS ORDERED: ONDANSETRON 4 MG INJ IV PRN (17:00)
[2017-05-01] MEDS ORDERED: HYDROCODONE/APAP (5/325) TAB PO PRN (17:00)
[2017-05-01] MEDS: FUROSEMIDE 40 MG INJ IV SCH (17:40)
[2017-05-01] MEDS: CEFTRIAXONE 1 GM/50 ML (PMX) 50 ML IVPB SCH (18:46)
[2017-05-01] MEDS: FAMOTIDINE 20 MG TAB PO SCH (20:30)
[2017-05-02] VITALS (14 sets, daily range): BP systolic 105–132; BP diastolic 59–82; PULSE 66–112; RESP 16–20
[2017-05-02] MEDS: FUROSEMIDE 40 MG INJ IV SCH ×2 (05:09→18:02)
[2017-05-02 08:17] LABS: HEMATOCRIT 39.9 % (37.0-47.0); HEMOGLOBIN 12.7 g/dl (12.0-16.0); LYMPHOCYTES # 1.1 10^3/ul (0.8-2.9); LYMPHOCYTES % 11.4 % (15.0-51.0); MEAN CORPUSCULAR HEMOGLOBIN 26.9 pg (29.0-33.0); MEAN CORPUSCULAR HGB CONC 31.8 g/dl (32.0-37.0); MEAN CORPUSCULAR VOLUME 84.5 fl (82.0-101.0); MEAN PLATELET VOLUME 11.3 fl (7.4-10.4); MONOCYTE # 0.8 10^3/ul (0.3-0.9); MONOCYTES % 8.2 % (0.0-11.0); NEUTROPHIL # 7.6 10^3/ul (1.6-7.5); NEUTROPHILS % 80.1 % (39.0-77.0); PLATELET COUNT 230 10^3/UL (140-415); RED BLOOD COUNT 4.72 10^6/ul (4.20-5.40); WHITE BLOOD COUNT 9.5 10^3/ul (4.8-10.8)
[2017-05-02] MEDS: VALSARTAN 80 MG TAB PO SCH (08:35)
[2017-05-02] MEDS: FAMOTIDINE 20 MG TAB PO SCH ×2 (08:35→20:22)
[2017-05-02] MEDS: ASPIRIN (EC) 325 MG TAB PO SCH (08:35)
[2017-05-02] MEDS: SPIRONOLACTONE 25 MG TAB PO SCH (08:35)
[2017-05-02 08:40] LABS: CALCIUM 8.6 mg/dl (8.4-10.2); CREATININE 1.02 mg/dl (0.44-1.00); MAGNESIUM 1.5 mg/dl (1.7-2.5); PHOSPHORUS 3.7 mg/dl (2.5-4.9); POTASSIUM 3.4 mmol/L (3.5-5.1)
[2017-05-02] MEDS: ALBUTEROL/IPRATROPIUM (NEB) 3 ML AMP HHN PRN ×2 (09:09→14:15)
[2017-05-02] MEDS ORDERED: POTASSIUM CHLORIDE (SR) 20 MEQ TAB PO STA (12:47)
[2017-05-02] MEDS ORDERED: MAGNESIUM SULFATE 4 GM/100 ML 100 ML IVPB ONE (13:00)
[2017-05-02] MEDS ORDERED: PROMETHAZINE/DM (CUP) PO PRN (13:00)
[2017-05-02] MEDS: PROMETHAZINE/DM (CUP) PO PRN ×2 (13:50→20:22)
[2017-05-02] MEDS: CEFTRIAXONE 1 GM/50 ML (PMX) 50 ML IVPB SCH (17:59)
--- NOTE | 2017-05-02 19:05 | PN ---
Date/Time of Note Date/Time of Note DATE: 05/02/17 TIME: 19:04 Assessment/Plan VTE Prophylaxis VTE Prophylaxis Intervention: SCD's Lines/Catheters IV Catheter Type (from Nrs): Peripheral IV Urinary Cath still in place: No Assessment/Plan Chief Complaint/Hosp Course 1. 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 History of TIA No acute issues 3. History of ventricular clot Continue Coumadin 4. Meth abuse U tox was positive 5. UTI UA at outside hospital does suggest UTI Rocephin IV Prophylaxis: SCDs Problems: Subjective 24 Hr Interval Summary Respiratory: shortness of breath Exam/Review of Systems Vital Signs Vitals Vital Signs Date Time Temp Pulse Resp B/P Pulse Ox O2 Delivery O2 Flow Rate FiO2 05/02/17 16:18 93 05/02/17 15:59 97.7 20 123/77 98 05/02/17 14:16 Nasal Cannula 2.0 Intake and Output 05/01/17 05/01/17 05/02/17 15:00 23:00 07:00 Intake Total 500 ml 480 ml Balance 500 ml 480 ml Exam Constitutional: alert, oriented Respiratory: clear to auscultation Cardiovascular: regular rate and rhythm Gastrointestinal: soft, No distended Musculoskeletal: nl extremities to inspection Results Result Diagram: 05/02/17 0752 05/02/17 0752 Results 24 hrs Laboratory Tests Test 05/02/17 07:52 White Blood Count 9.5 # Red Blood Count 4.72 Hemoglobin 12.7 Hematocrit 39.9 Mean Corpuscular Volume 84.5 Mean Corpuscular Hemoglobin 26.9 L Mean Corpuscular Hemoglobin Concent 31.8 L Red Cell Distribution Width 16.0 H Platelet Count 230 Mean Platelet Volume 11.3 H Neutrophils % 80.1 H Lymphocytes % 11.4 L Monocytes % 8.2 Eosinophils % 0.0 Basophils % 0.0 Nucleated Red Blood Cells % 0.0 Neutrophils # 7.6 H Lymphocytes # 1.1 Monocytes # 0.8 Eosinophils # 0.0 Basophils # 0.0 Nucleated Red Blood Cells # 0.0 Sodium Level 140 Potassium Level 3.4 L Chloride Level 100 Carbon Dioxide Level 30 Anion Gap 13 Blood Urea Nitrogen 24 H Creatinine 1.02 H Glucose Level 178 Calcium Level 8.6 Phosphorus Level 3.7 Magnesium Level 1.5 L Medications Medications Current Medications Ondansetron HCl (Zofran Inj) 4 mg Q6H PRN IV NAUSEA AND/OR VOMITING; Start 05/08 at 17:00 Acetaminophen (Tylenol Tab) 650 mg Q6H PRN PO PAIN LEVEL 1-3 OR FEVER; Start 05/01/17 at 17:00 Acetaminophen/ Hydrocodone Bitart ([place] (5/325)) 1 tab Q6H PRN PO MODERATE PAIN LEVEL 4-6 Last administered on 05/01/17 17:41; Admin Dose 1 TAB; Start 05/01/17 at 17:00 Morphine Sulfate (morphine) 2 mg Q4H PRN IV SEVERE PAIN LEVEL 7-10; Start 05/08 at 17:00 Docusate Sodium (Colace) 100 mg Q12H PRN PO CONSTIPATION; Start 05/01/17 at 17 :00 Zolpidem Tartrate (Ambien) 5 mg QHS PRN PO SLEEP; Start 05/01/17 at 17:00 Aspirin (Ecotrin) 325 mg DAILY PO Last administered on 05/02/17 08:35; Admin Dose 325 MG; Start 05/02/17 at 09:00 Famotidine (Pepcid) 20 mg BID PO Last administered on 05/02/17 08:35; Admin Dose 20 MG; Start 05/01/17 at 21:00 Spironolactone (Aldactone) 25 mg DAILY PO Last administered on 05/02/17 08:35 ; Admin Dose 25 MG; Start 05/02/17 at 09:00 Valsartan 80 mg 80 mg DAILY PO Last administered on 05/02/17 08:35; Admin Dose 80 MG; Start 05/02/17 at 09:00 Ceftriaxone Sodium (Rocephin) 50 ml @ 100 mls/hr Q24H IVPB Last administered on 05/02/17 17:59; Admin Dose 100 MLS/HR; Start 05/01/17 at 17:00 Promethazine HCl/ Dextromethorphan (Phenergan-Dm) 5 ml Q4 PRN PO COUGH Last administered on 05/02/17 13:50; Admin Dose 5 ML; Start 05/02/17 at 13:30 CLEMENTE QUINONEZ May 02, 2017 19:05
[2017-05-03] VITALS (8 sets, daily range): BP systolic 108–141; BP diastolic 62–93; PULSE 70–146; RESP 18–20
[2017-05-03] MEDS: FUROSEMIDE 40 MG INJ IV SCH (05:43)
[2017-05-03 08:47] LABS: BASOPHILS % 0.1 % (0.0-2.0); HEMATOCRIT 47.8 % (37.0-47.0); HEMOGLOBIN 15.2 g/dl (12.0-16.0); LYMPHOCYTES # 1.2 10^3/ul (0.8-2.9); LYMPHOCYTES % 15.5 % (15.0-51.0); MEAN CORPUSCULAR HEMOGLOBIN 27.1 pg (29.0-33.0); MEAN CORPUSCULAR HGB CONC 31.8 g/dl (32.0-37.0); MEAN CORPUSCULAR VOLUME 85.2 fl (82.0-101.0); MEAN PLATELET VOLUME 11.2 fl (7.4-10.4); MONOCYTES % 12.1 % (0.0-11.0); NEUTROPHIL # 5.7 10^3/ul (1.6-7.5); NEUTROPHILS % 71.9 % (39.0-77.0); PLATELET COUNT 257 10^3/UL (140-415); RED BLOOD COUNT 5.61 10^6/ul (4.20-5.40); RED CELL DISTRIBUTION WIDTH 17.6 % (11.5-14.5); WHITE BLOOD COUNT 7.9 10^3/ul (4.8-10.8)
[2017-05-03] MEDS: ASPIRIN (EC) 325 MG TAB PO SCH (08:57)
[2017-05-03] MEDS: FAMOTIDINE 20 MG TAB PO SCH (08:57)
[2017-05-03] MEDS: VALSARTAN 80 MG TAB PO SCH (08:58)
[2017-05-03] MEDS: SPIRONOLACTONE 25 MG TAB PO SCH (08:58)
[2017-05-03 09:22] LABS: CALCIUM 9.3 mg/dl (8.4-10.2); CREATININE 1.01 mg/dl (0.44-1.00); MAGNESIUM 2.2 mg/dl (1.7-2.5); POTASSIUM 4.2 mmol/L (3.5-5.1)
[2017-05-03] MEDS ORDERED: FURO40TA4 PO (12:02)
[2017-05-03] MEDS ORDERED: CARV6.25 PO (12:02)
--- NOTE | 2017-05-03 12:07 | PDOCDIS ---
Discharge Instructions CONDITION Patient Condition: Good HOME CARE INSTRUCTIONS: Special Diet: 2Gm Na ACTIVITY: Activity Restrictions: No Restrictions FOLLOW UP/APPOINTMENTS Follow-up Plan F/U WITH YOUR PCP IN 1-2 WEEKS CLEMENTE QUINONEZ May 03, 2017 12:07
--- NOTE | 2017-05-03 15:59 | DS ---
Date/Time of Note Date/Time of Note DATE: 05/03/17 TIME: 15:49 Discharge Summary Admission/Discharge Info Admit Date/Time May 01, 2017 at 11:20 Discharge Date/Time May 03, 2017 Discharge Diagnosis 1. Acute respiratory distress secondary to acute on chronic systolic and diastolic CHF exacerbation-resolved Patient has known EF of 20% with stage II diastolic heart failure Continue home Lasix Continue cardiac meds, add Coreg to home regimen 2. History of TIA No acute issues 3. History of ventricular clot 4. Meth abuse U tox was positive Cessation advised 5. UTI UA at outside hospital does suggest UTI Status post Rocephin IV Patient Condition: Good Hospital Course Patient is a 51-year-old female with history of TIA, CHF with an EF of 20%, meth abuse, ventricular clot on Coumadin. Patient presents with shortness of breath, patient was transferred to [facility] for insurance reasons. At outside hospital BNP was noted to be elevated, patient was admitted with a diagnosis of CF exacerbation. Patient's shortness of breath did improve with Lasix, patient was noted to have a UTI at the outside facility and was treated with Rocephin IV. Patient's shortness of breath did resolve and was felt to be stable for discharge, of note patient was evaluated by social work supervisor. On the day of discharge patient vitals, labs and physical exam stable patient had no further acute complaints questions are answered. Home Meds Active Scripts Carvedilol* (Coreg*) 6.25 Mg Tablet, 6.25 MG PO BID, #60 TAB Prov:CLEMENTE QUINONEZ 05/03/17 Furosemide* (Furosemide*) 40 Mg Tablet, 40 MG PO DAILY, #90 TAB Prov:CLEMENTE QUINONEZ 05/03/17 Famotidine* (Famotidine*) 20 Mg Tablet, 20 MG PO BID, #120 TAB Prov:SAVANA AVILA MD 03/15/17 Aspirin (Aspir-Janessa) 325 Mg Tablet.dr, 325 MG PO DAILY, #100 Prov:SAVANA AVILA MD 03/15/17 Spironolactone* (Aldactone*) 25 Mg Tablet, 25 MG PO DAILY, #60 TAB Prov:SAVANA AVILA MD 03/15/17 Valsartan* (Diovan*) 80 Mg Tablet, 80 MG PO DAILY, #60 TAB Prov:SAVANA AVILA MD 03/15/17 Reported Medications Acetaminophen* (Acetaminophen*) 325 Mg Tablet, 650 MG PO Q6H Y for PAIN AND OR ELEVATED TEMP, #30 TAB 03/13/17 Follow-up Plan F/U WITH YOUR PCP IN 1-2 WEEKS Primary Care Provider [facility] Time spent on discharge: > 30 minutes CLEMENTE QUINONEZ May 03, 2017 15:59
[2017-05-03] MEDS: CEFTRIAXONE 1 GM/50 ML (PMX) 50 ML IVPB SCH (17:00)
== END 2017-05-03 17:15 | disposition home or self-care (01) | DRG 292 ==
LOC: MS4 11:20
PROVIDERS: ADMIT Internal Medicine; ATTEND Internal Medicine
DX: I11.0 Hypertensive heart disease with heart failure (principal); N39.0 Urinary tract infection, site not specified; I50.43 Acute on chronic combined systolic (congestive) and diastolic (congestive) heart failure; F15.10 Other stimulant abuse, uncomplicated; F17.210 Nicotine dependence, cigarettes, uncomplicated; Z79.01 Long term (current) use of anticoagulants; Z95.0 Presence of cardiac pacemaker; Z86.73 Personal history of transient ischemic attack (TIA), and cerebral infarction without residual deficits
CPT/HCPCS: 80048; 83735; 83880; 84100; 85025; 94640; 94664; J0696; J1940